=== PATIENT | female | born 1990 | race Native Hawaiian/Other Pacific Islander ===

== ENCOUNTER 2017-06-02 15:58 | Emergency (ER) | payer MEDICAID ==
[2017-06-02 16:15] VITALS: BMI 18.1
[2017-06-02] MEDS ORDERED: Sodium Chloride 0.9% 500 ML IV ONE (17:24)
[2017-06-02] MEDS ORDERED: Sodium Chloride 0.9% 1,000 ML ONE ×2 (17:42→19:35)
[2017-06-02 17:43] LABS: BASO % 0.2 % (0.0-2.0); HEMATOCRIT 37.5 % (34.0-47.0); LYMPH # 1.3 K/uL (1.0-4.3); LYMPH % 16.1 % (20.0-40.0); MEAN CELL VOLUME 87.2 fL (81.0-99.0); MEAN CORPUSCULAR HEMOGLOBIN 29.8 pg (27.0-31.0); MEAN CORPUSCULAR HGB CONC 34.2 g/dL (33.0-37.0); MEAN PLATELET VOLUME 7.1 fL (7.2-11.7); MONO # 0.6 K/uL (0.0-0.8); MONO % 8.1 % (0.0-10.0); RED CELL DISTRIBUTION WIDTH 13.1 % (11.5-14.5); WHITE BLOOD COUNT 7.8 K/uL (4.8-10.8)
--- NOTE | 2017-06-02 17:51 | RAD ---
HISTORY: SOB COMPARISON: None available. TECHNIQUE: Chest PA and lateral FINDINGS: LUNGS: No focal consolidation. Please note that chest x-ray has limited sensitivity for the detection of pulmonary masses. PLEURA: No significant pleural effusion identified. No definite pneumothorax . CARDIOVASCULAR: The cardiomediastinal silhouette appears within normal limits of size. OSSEOUS STRUCTURES: No acute osseous abnormality identified. VISUALIZED UPPER ABDOMEN: Unremarkable. OTHER FINDINGS: None. IMPRESSION: No focal consolidation, significant pleural effusion, or definite pneumothorax identified.
[2017-06-02 17:59] LABS: RBC URINE 4 /hpf (0-3); URINE BACTERIA OCC (<OCC); URINE BILIRUBIN NEGATIVE (NEGATIVE); URINE BLOOD NEGATIVE (NEGATIVE); URINE COLOR Yellow (YELLOW); URINE GLUCOSE (UA) NORMAL (Normal); URINE KETONE 2+ mg/dL (NEGATIVE); URINE LEUKOCYTE ESTERASE NEG Leu/uL (Negative); URINE PROTEIN 2+ mg/dL (NEGATIVE); WBC URINE 4 /hpf (0-5)
[2017-06-02 17:59] LABS: ALB/GLOB RATIO 1.2 (1.0-2.1); ALKALINE PHOSPHATASE 61 U/L (38-126); ALT/SGPT 18 U/L (9-52); AST/SGOT 23 U/L (14-36); BILIRUBIN,TOTAL 0.6 mg/dL (0.2-1.3); BLOOD UREA NITROGEN 12 mg/dL (7-17); CALCIUM 8.1 mg/dl (8.6-10.4); CARBON DIOXIDE 22 mmol/L (22-30); CHLORIDE 97 mmol/L (98-107); GFR AFRICAN-AMERICAN > 60; GLUCOSE,RANDOM 86 mg/dL (65-105); SODIUM 130 mmol/L (132-148); TOTAL PROTEIN 7.8 g/dL (6.3-8.3)
[2017-06-02] MEDS ORDERED: Potassium Chloride 20 mEq ER Tab PO STA (18:11)
[2017-06-02] MEDS ORDERED: Potassium Chloride 20 mEq ER Tab PO ONE (18:35)
--- NOTE | 2017-06-02 18:47 | C.PDOC ---
History Of Present Illness <Jossy Montero - Last Filed: 06/02/17 18:45> <Rick Eller - Last Filed: 06/02/17 20:04> 27 yo female c/o fever for four days associated with headache and body aches. (+ ) nasal congestion. Denies cough, abdominal pain, urinary frequency, dysuria, chest pain, SOB, or sore throat. Notes taking dayquil and advil with transient relief. No known sick contacts. (RickJossy pereira) History Per: Patient History/Exam Limitations: no limitations Onset/Duration Of Symptoms: Days Current Symptoms Are (Timing): Still Present Associated Symptoms: Fever <Jossy Montero - Last Filed: 06/02/17 18:45> <Mitra Ellerrahat - Last Filed: 06/02/17 20:04> Time Seen by Provider: 06/02/17 17:08 Chief Complaint (Nursing): Fever Past Medical History Family History: States: Unknown Family Hx - Social History Hx Alcohol Use: No Hx Substance Use: No - Immunization History Hx Tetanus Toxoid Vaccination: No Hx Influenza Vaccination: No Hx Pneumococcal Vaccination: No <Jossy Montero - Last Filed: 06/02/17 18:45> Vital Signs: Last Vital Signs Temp 98.3 F 06/02/17 19:35 Pulse 86 06/02/17 19:35 Resp 22 06/02/17 19:35 BP 94/60 L 06/02/17 19:35 Pulse Ox 97 06/02/17 19:35 Review Of Systems Except As Marked, All Systems Reviewed And Found Negative. Constitutional: Positive for: Fever Neurological: Positive for: Headache <Jossy Montero - Last Filed: 06/02/17 18:45> Physical Exam - Physical Exam Appears: Non-toxic, No Acute Distress, Other (uncomfortable) Skin: Normal Color, Warm, Dry Head: Atraumatic, Normacephalic Eye(s): bilateral: Normal Inspection, PERRL, EOMI Nose: Normal Oral Mucosa: Moist Throat: Normal, No Erythema, No Exudate, No Drooling Neck: Normal, Normal ROM, Supple ((-) brudzinski and kernig sign) Chest: Symmetrical Cardiovascular: Rhythm Regular Respiratory: Normal Breath Sounds Gastrointestinal/Abdominal: Normal Exam, Soft, No Tenderness Back: Normal Inspection Extremity: Normal ROM Neurological/Psych: Oriented x3, Normal Speech <FelacaneloJossy - Last Filed: 06/02/17 18:45> ED Course And Treatment - Laboratory Results Result Diagrams: 06/02/17 17:39 06/02/17 17:39 O2 Sat by Pulse Oximetry: 99 - Radiology CXR: Interpreted by Me, Viewed By Me CXR Interpretation: Yes: No Acute Disease Progress Note: Tylenol and Toradol ordered. On re-evaluation, pt notes pain improvment. <JaylenJossy mendez - Last Filed: 06/02/17 18:45> - Laboratory Results Result Diagrams: 06/02/17 17:39 06/02/17 17:39 Pulse Ox Interpretation: Normal Progress Note: 8PM feels better. No more headache. no nucchal rigidity. wants to go home Reevaluation Time: 20:04 Reassessment Condition: Improved <Rick Eller - Last Filed: 06/02/17 20:04> Disposition <JaylenvanessaJossy - Last Filed: 06/02/17 18:45> Counseled Patient/Family Regarding: Studies Performed, Diagnosis, Need For Followup, Rx Given - Disposition Disposition Time: 19:00 <Rick Eller - Last Filed: 06/02/17 20:04> - Disposition Referrals: Sandeep Gallegos MD [Staff Provider] - Disposition: HOME/ ROUTINE Condition: FAIR Additional Instructions: REturn to ER tomorrow if symptoms persist or worsen. Return right away if headache persists, neck pain , vomiting, or any other symptoms. Prescriptions: Ibuprofen [Motrin] 400 mg PO Q6 PRN #20 tab PRN Reason: Fever Oseltamivir Phosphate [Tamiflu] 75 mg PO BID #10 capsule Instructions: Fever in Adults (ED) Forms: [facility] ([place]) - Clinical Impression Clinical Impression: Influenza-like illness
[2017-06-02] MEDS ORDERED: cefTRIAXone IV 1 gm in Dextros 50 ML IV ONE (19:16)
[2017-06-02] MEDS ORDERED: Lactated Ringer's 1,000 ML ONE (19:26)
[2017-06-02] MEDS ORDERED: Sodium Chloride 0.9% 1,000 ML IV ONE (19:27)
[2017-06-02 19:36] VITALS: TEMP 98.3; O2SAT 97
[2017-06-02] MEDS ORDERED: Tmp-Smz 800 mg-160 mg DS Tab ONE (20:38)
[2017-06-02] MEDS ORDERED: Tmp-Smz 800 mg-160 mg DS Tab PO ONE (20:39)
[2017-06-02 20:51] VITALS: BP 90/60; PULSE 76; RESP 18
== END 2017-06-02 20:47 | disposition home or self-care (01) ==
LOC: C.ER 15:58
DX: J11.1 Influenza due to unidentified influenza virus with other respiratory manifestations (principal)
CPT/HCPCS: 71020; 80053; 81001; 84703; 85025; 87804; 96361; 96374; 99285; J1885; J7040